=== PATIENT | male | born 1955 | race Caucasian/White ===

== ENCOUNTER 2020-01-19 09:43 | Outpatient (CLI) | payer MEDICARE, MEDICAID, SELFPAY ==
--- NOTE | 2020-01-19 09:49 | USCV_ITS ---
Chano Lao Age: 64 Gender: M : 1955 Exam Date: 01/19/2020 10:22 Ordering Phys: Sergio Piña MD ([email or web address]) Technologist: Marita Campbell [place] [facility] [place]: CAROTID STENOSIS Risk Factors: Previous Vascular Surgery: Right Brachial BP: / Left Brachial BP: / Right Left Velocity (cm/s) Spectral Plaque Velocity (cm/s) Spectral Plaque Syst/Diast Broadening Syst/Diast Broadening 97.00/ 36.40 Prox CCA 68.40 / 17.60 101.40/39.70 Mid CCA 70.60 / 28.70 77.20/ 28.70 Distal CCA 79.40 / 33.10 76.10/ 28.70 Prox ICA 79.40 / 25.35 63.90/ 29.80 Mid ICA 78.30 / 36.40 68.40/ 30.90 Distal ICA 75.00 / 29.80 79.40 ECA 118.00 0.75 ICA/CCA 1.28 Antegrade Vertebral Antegrade 47.40/ 17.60 cm/s 40.00/ cm/s FINDINGS Mild to moderate diffuse plaques in the common carotid arteries bilaterally. Mild to moderate heterogeneous plaques of the right bifurcation and ICA Moderate heterogeneous plaques at the bifurcation and proximal internal carotid artery on the left side Delayed peaking waveforms in the internal carotid arteries bilaterally Antegrade flow in the vertebral arteries bilaterally Normal Doppler flow velocity in the external carotid arteries bilaterally CONCLUSIONS 1. Moderate heterogeneous plaques at the bifurcation and proximal internal carotid artery on the left side with velocity elevation consistent with 16-49% stenosis. 2. Mild to moderate heterogeneous plaques at the right bifurcation and internal carotid artery 3. Mild to moderate diffuse plaques in the common carotid arteries bilaterally. 4. Abnormal Doppler waveforms in the carotid arteries bilaterally may suggest aortic valve/aortic arch disease. Consider CTA, if clinically indicated Dr Selina Espitia MD [facility] (Electronically Signed) Final Date: 19 January 2020 23:17 S
== END 2020-01-19 09:44 | disposition home or self-care (01) ==
LOC: RAD 09:46
PROVIDERS: PCP Family Medicine; Visit Provider Internal Medicine Cardiovascular Disease
DX: I65.23 Occlusion and stenosis of bilateral carotid arteries (principal)
CPT/HCPCS: 93880

== ENCOUNTER → 2021-11-12 11:21 | Outpatient (BNVA) | payer MEDICARE, MEDICAID, SELFPAY | PROVIDERS: PCP Family Medicine; Referring Provider Internal Medicine Critical Care Medicine; Visit Provider Surgery | DX: C34.90 Malignant neoplasm of unspecified part of unspecified bronchus or lung (principal) | CPT/HCPCS: 99212 ==

== ENCOUNTER 2021-11-18 05:51 | Day surgery (SDC) | payer MEDICARE, MEDICAID, SELFPAY ==
[2021-11-14 13:50] VITALS: BMI 24.5
[2021-11-18] VITALS (7 sets, daily range): BP systolic 105–130; BP diastolic 67–88; PULSE 72–83; RESP 16–20; TEMP 36.4–36.8; O2SAT 95–100
--- NOTE | 2021-11-18 | SCC_ITS ---
Procedure done: Mediport Placement 6.5 seconds of fluoroscopic guidance, for a cumulative dose of 0.67 mGy, was provided to Dr. Brandt by the radiology department. C-arm images of the chest were saved for the patient's permanent record. [facility]
--- NOTE | 2021-11-18 06:25 | XR_ITS ---
WS: [id number] PORTABLE CHEST HISTORY: Postop after mediport placement COMPARISON: Chest CT 10/24/2021 Interval insertion RIGHT subclavian Mediport with tip at the SVC/atrial junction. Chronic hyperinflation from emphysema. Patient has a large solid mass centered over the central RIGHT lung noted to be neoplasm on prior imaging studies. No pleural effusion or pneumothorax. Cardiac size: Normal. Mediastinum/Aorta: Mild atherosclerosis aorta. Atherosclerosis aorta and widening the mediastinum due to the known RIGHT lung and mediastinal neoplasm. Surgical clips lower RIGHT neck. Prior anterior cervical fusion hardware. XR/XR chest 1V portable [id number] IMPRESSION: 1. Satisfactory placement RIGHT subclavian Mediport. Tip terminates at the SVC atrial junction. 2. Large solid mass centered over the central LEFT thorax has been previously described on chest CT from 10/24/2021.
--- NOTE | 2021-11-18 06:25 | SC_ITS ---
WS: [id number] C-ARM RADIOGRAPHS CHEST; 3 IMAGES HISTORY: medi port insertion COMPARISON: None available. Intraoperative imaging during RIGHT subclavian Mediport placement. Tip terminates at the caval/atrial junction. SC/C-arm [place] CVA [address]120 IMPRESSION: Satisfactory placement RIGHT Mediport.
[2021-11-18] MEDS: sodium chloride 0.9% 1,000 ML 30 ML IV (06:31)
--- NOTE | 2021-11-18 07:30 | ANES.PREANE2 ---
Pre-Anesthetic Assessment Height/Weight: Height 1.7 m Weight 71.214 kg Temp Pulse Resp BP Pulse Ox 97.8 F 83 20 H 118/81 96 11/18/21 06:13 11/18/21 06:13 11/18/21 06:13 11/18/21 06:13 11/18/21 06:13 Preop Diagnosis: lung cancer Operation Date: 11/18/21 07:00 Proposed Procedures p Ebus(Not Applicable) - MD romel Lanier Portacath Placement 43692/C34.90(Not Applicable) - Luis Fernando Brandt DO Familial anesthetic complications: None Was Beta Taz taken within 24 hours: Yes Was Clonidine taken within 24 hours: N/A Last intake: Intake Last Liquid Date 11/17/21 Last Liquid Time 17:00 Last Solid Date 11/17/21 Last Solid Time 17:00 Social Tobacco and No alcohol Exam alert, oriented x 3 and regular rate & rhythm rhonchi Airway Submandibular: within normal limits Cervical ROM: within normal limits Mallampati: Class II Dentition: false Pulmonary Chronic Obstructive Pulmonary Disease lung CA CV/HEM Coronary Artery Disease (stent), Hypertension and Myocardial Infarction Metabolic Hyperlipidemia and Thyroid Disease Anesthetic Plan ASA status: 3 Anesthesia: General Medications/Allergies Home Medications Medication Instructions Recorded Confirmed Last Taken Type albuterol sulfate 90 mcg/actuation 2 puff INHALATION Q6H PRN 07/31/19 11/14/21 11/17/21 History aerosol inhaler (ProAir HFA) carvedilol 3.125 mg tablet 3.125 mg PO BID 07/31/19 11/18/21 11/18/21 History levothyroxine 125 mcg capsule 125 mcg PO QDAY 07/31/19 11/14/21 11/17/21 History pravastatin 40 mg tablet 40 mg PO QDAY 07/31/19 11/14/21 11/17/21 History budesonide-formoterol HFA 160 1 inh INHALATION BID 11/12/21 11/14/21 11/17/21 History mcg-4.5 mcg/actuation aerosol inhaler (Symbicort) guaifenesin 600 mg tablet, 600 mg PO BID 11/12/21 11/14/21 11/17/21 History extended release 12 hr (Mucinex) hydrocodone 10 mg-acetaminophen 1 tab PO Q6H PRN 11/12/21 11/14/21 11/17/21 History 325 mg tablet Allergies Allergy/AdvReac Type Severity Reaction Status Date / Time No Known Allergies Allergy Verified 11/12/21 11:31 Current Medications Generic Name Dose Route Start Last Admin Trade Name Apolinarq PRN Reason Stop Dose Admin Sodium Chloride 1,000 mls @ 30 mls/hr 11/18/21 06:00 11/18/21 06:31 Sodium Chloride 0.9% IV 11/19/21 05:59 30 mls/hr .Q24H MARIVEL Administration PFSH Anesthesia Medical History AAA (abdominal aortic aneurysm) Aortic stenosis ASHD (arteriosclerotic heart disease) Carotid stenosis, bilateral COPD (chronic obstructive pulmonary disease) CVA (cerebral vascular accident) DDD (degenerative disc disease) Hyperlipidemia Surgical History H/O neck surgery Previous back surgery S/P carotid endarterectomy Family History Family/Other CAD (coronary artery disease) Social History Smoking and tobacco status: current every day smoker cigarettes Packs smoked per day: 2 Years cigarettes smoked: 51 [ Other cigarette details: started at age 15] Data Anesthesia Cardiac Studies: No Data to Display
[2021-11-18] MEDS: heparin, porcine 1,000 unit/mL INJ 10 mL 10000 UNIT INJECTION (07:35)
--- NOTE | 2021-11-18 08:10 | PM.OP ---
Operative Report Date of procedure: November 18, 2021 Pre-op diagnosis: Preop Diagnosis lung cancer Post-op diagnosis: SAME Procedure done: Mediport Placement Specimens removed/disposition: none Surgeon: Luis Fernando Brandt D.O. Estimated blood loss: 2 Brief History: Patient with Left-sided lung mass. We discussed the risks and benefits, possible alternatives, and possible complications of the above procedure including bleeding, infection, scar, pain, risk of pneumothorax, need for chest tube, possible malfunction or malposition, or flipping of the Mediport, possible infection of the Mediport, bacteremia, possible need for Mediport removal or removal in the future upon completion of treatment. She expressed understanding to our discussion, signed informed consent which is documented on the chart, and wished to proceed to the OR today. Procedure: Mr. Lao was taken to the operating room and placed supine on the operating room table. All bony prominences were padded. She was given IV sedation and monitored throughout the case by the anesthesia personnel. SCDs were placed and turned on. The arms were tucked to the side. Patient received Ancef 2 g preoperatively IV. The bilateral chest wall and breasts were prepped and draped in usual sterile fashion using chlorhexidine base prep. Sterile drapes were applied. We did procedure pause prior to beginning. An 18 gauge needle was placed in the right subclavian vein. Dark, nonpulsatile blood was aspirated. A guidewire was placed through the needle centrally toward the atrial/vena caval junction. Fluoroscopy visualized good placement. The needle was removed and the guidewire was clipped to the drape with a hemostat. Further local anesthetic was infiltrated in the soft tissues of the right chest wall and a #15 blade was used to make a horizontal skin incision. A subcutaneous Mediport pocket was created using Bovie cautery, dissecting down through the skin and subcutaneous tissues. Meticulous hemostasis was achieved. The Mediport was sutured in position using 3-0 vicryl suture x2 stitches. A #15 blade was used to make a small skin feroz around the guidewire insertion area. The Mediport tubing was tunneled through the subcutaneous tissues up to the needle insertion location. A dilator with a peel-away sheath was placed over the guidewire and placed centrally. After measuring with fluoroscopy, the Mediport tubing was cut to length so that the tip would end at the atrial/vena caval junction. The inner cannula and the guidewire were removed, leaving the dilator sheath in place. The Mediport was flushed. The tip of the catheter was inserted through the peel-away sheath and the peel-away sheath removed in the standard fashion. The Mediport was accessed with a straight Greene needle and dark, nonpulsatile blood was aspirated and flushed using heparinized saline to hep-lock the Mediport. Final fluoroscopy visualization showed no kink in the catheter and the tip of the Mediport tubing near the right atrial/vena caval junction. Both skin incisions were thoroughly irrigated and suctioned dry. Meticulous hemostasis noted. The Mediport incision was closed using interrupted 3-0 Vicryl suture for the deep dermal layer and 4-0 Vicryl run to close the skin edge. The right subclavian insertion site incision was closed with a single subcuticular stitch. Skin glue was applied as a topical dressing. This was allowed to dry. Patient was awakened from anesthesia and transferred via her cart to the recovery room in stable condition. All needle, sponge, and instrument counts were correct per the operating personnel x2 counts.
--- NOTE | 2021-11-18 08:19 | P.HPUD_ITS ---
Surgery/Procedure H&P Update DATE OF PROCEDURE: November 18, 2021 DATE H&P PERFORMED: 11/12/21 PREOP DIAGNOSIS: lung cancer PRIMARY INDICATION FOR PROCEDURE: This is a 66-year-old gentleman with suspected lung cancer. The patient has left lower lobe lung mass with extensive metastatic hilar lymphadenopathy. The patient was supposed to undergo bronchoscopy and EBUS however due to technical difficulties the EBUS scope was nonfunctional. I had reviewed the patient's CT scan from [facility] and there appeared to be some narrowing in the left-sided airways at the junction of the left upper lobe and lower lobe bronchi. After discussion with the patient's son, I had decided to proceed with a bronchoscopy to look for endobronchial lesions which could provide us diagnosis. PLANNED PROCEDURE: Bronchoscopy inspection of the endobronchial biopsy, bronchoalveolar lavage and control of bleeding. Operation Date: 11/18/21 07:00 Proposed Procedures p Ebus(Not Applicable) - Tigre Ríos MD s Portacath Placement 95568/C34.90(Not Applicable) - Luis Fernando Brandt DO
--- NOTE | 2021-11-18 08:21 | PM.OP ---
Operative Report Date of procedure: November 18, 2021 Pre-op diagnosis: Preop Diagnosis lung cancer Preop Diagnosis lung cancer Brief History: This is a 66-year-old gentleman coming in for bronchoscopic evaluation for suspected lung cancer. The plan was for him to undergo bronchoscopy and EBUS for left hilar lung mass and mediastinal and hilar lymphadenopathy. However, due to technical reasons the EBUS scope was not functional. Had reviewed the patient's CT scan from [facility] and there appeared to be narrowing at the junction of the left upper lobe and lower lobe bronchi. After discussing with his son, I had decided to proceed with a bronchoscopy to see if there was any endobronchial lesion that could be biopsied. Procedure: Name of the procedure: Bronchoscopy with inspection of the airway, possible bronchoalveolar lavage, endobronchial biopsy and control of bleeding. Indication: Suspected lung cancer Anesthesia: General anesthesia. Local anesthesia: The vocal cords, trachea, yamil in the right and left mainstem bronchi were anesthetized with 1% lidocaine, 7 mL. Description of the procedure: The procedure was explained to the patient and the consent was obtained. The patient was brought to the OR. The patient underwent laryngeal mask airway placement for general anesthesia. Following induction of general anesthesia, the bronchoscope was advanced through the LMA. The vocal cords were normal. The vocal cords were anesthetized with 1% lidocaine. 3 mL lidocaine was used. The bronchoscope was then introduced through the vocal cords under direct visualization. Upper and lower trachea appeared to be mildly erythematous. Upper and lower trachea arrested with 1% lidocaine. The yamil and right and left mainstem bronchi were also incised with 1% lidocaine. In a systematic manner bilateral bronchial tree was then examined. The bronchoscope was advanced into the left mainstem bronchus. The left upper lobe, lingula and left lower lobe bronchi were examined up to the third subsegmental level and no abnormalities were identified. There is no endobronchial lesion. The bronchoscope was then introduced into the right mainstem bronchus. The right upper lobe, right middle lobe and right lower lobe bronchi were examined up to the third subsegmental level and no abnormalities were identified. There was mild airway erythema and mucus throughout the lung. The mucus was cleared out by suctioning. Samples: 1. No samples are obtained. Complications: There was no immediate complications.
--- NOTE | 2021-11-18 16:29 | ANE.PACU2 ---
Inpatient post-anesthesia follow up: Airway intact: Yes Vital signs: Temperature 97.8 F Pulse Rate 72 Respiratory Rate 18 Blood Pressure 105/75 Pulse Oximetry 97 Oxygen Delivery Me thod Room Air Oxygen Flow Rate 6 Fraction of Inspir ed Oxygen Hydration adequate: Yes Nausea and vomiting: No Pain level: 2 Mental status: Baseline
== END 2021-11-18 09:28 | disposition home or self-care (01) ==
PROVIDERS: Surgery; PCP Family Medicine; Visit Provider Internal Medicine Critical Care Medicine
PROC: BB4BZZZ Ultrasonography of Pleura (ICD-10-PCS; principal; 2021-11-18 07:00)
PROC: (CPT 36561; 2021-11-18 07:00)
DX: C34.90 Malignant neoplasm of unspecified part of unspecified bronchus or lung (principal); J44.9 Chronic obstructive pulmonary disease, unspecified; I25.10 Atherosclerotic heart disease of native coronary artery without angina pectoris; Z95.5 Presence of coronary angioplasty implant and graft; I10 Essential (primary) hypertension; I25.2 Old myocardial infarction; E78.5 Hyperlipidemia, unspecified; Z86.73 Personal history of transient ischemic attack (TIA), and cerebral infarction without residual deficits; F17.210 Nicotine dependence, cigarettes, uncomplicated
CPT/HCPCS: 36561; 71045; 76000; 77001; C1788; J0690; J1644; J2370; J2704; J3010; J7030

== ENCOUNTER 2021-11-25 05:40 | Day surgery (SDC) | payer MEDICARE, MEDICAID, SELFPAY ==
[2021-11-21 14:37] VITALS: BMI 24.4
[2021-11-25 06:12] VITALS: BP 131/85; PULSE 76; RESP 18; TEMP 36.7; O2SAT 96
[2021-11-25] MEDS: sodium chloride 0.9% 1,000 ML 30 ML IV (06:15)
--- NOTE | 2021-11-25 06:59 | P.ANESUD_ITS ---
Pre-Anesthetic Update Pre-Anesthetic Assessment: Date of Surgery/Procedure: 11/25/21 Preop Claudine gnosis: lung cancer Proposed Procedure: Operation Date: 11/18/21 12:00 Proposed Procedures p Portacath Placement 14600/C34.90(Not Applicable) - Luis Frenando Brandt DO Operation Date: 11/25/21 07:00 Proposed Procedures p Ebus(Not Applicable) - Tigre Ríos MD Changes from Pre-Anesthetic Assessment: No changes per patient. Patient received a GA 1 week prior with no issues. Last Intake: Intake Last Liquid Date 11/24/21 Last Liquid Time 21:00 Last Solid Date 11/24/21 Last Solid Time 17:00 Vitals: Temperature 98.1 F 11/25/21 06:12 Temperature Source Temporal Artery S can 11/25/21 06:12 Pulse Rate 76 11/25/21 06:12 Respiratory Rate 18 11/25/21 06:12 Blood Pressure 131/85 11/25/21 06:12 Blood Pressure Yvonne n 100 11/25/21 06:12 Pulse Oximetry 96 11/25/21 06:12 Oxygen Delivery Me thod 11/25/21 06:12 Cardiac Studies: No Data to Display
--- NOTE | 2021-11-25 07:03 | W.PM.OPSUD ---
Surgery/Procedure H&P Update DATE OF PROCEDURE: November 25, 2021 DATE H&P PERFORMED: 11/12/21 CHANGES TO PREVIOUS DOCUMENTATION: No changes PREOP DIAGNOSIS: lung cancer PRIMARY INDICATION FOR PROCEDURE: Suspected lung cancer PLANNED PROCEDURE: Bronchoscopy with inspection of the airway, endobronchial sound guided transbronchial needle aspiration of lymph nodes and control of bleeding. Operation Date: 11/18/21 12:00 Proposed Procedures p Portacath Placement 96731/C34.90(Not Applicable) - Luis Fernando Brandt DO Operation Date: 11/25/21 07:00 Proposed Procedures p Ebus(Not Applicable) - Tigre Ríos MD
[2021-11-25] MEDS: lidocaine 1% INJ 20 mL XX (07:23)
[2021-11-25 07:50] VITALS: BP 100/62; PULSE 74; RESP 14; TEMP 36.3; O2SAT 97
--- NOTE | 2021-11-25 07:51 | PM.OP ---
Operative Report Date of procedure: November 25, 2021 Pre-op diagnosis: Preop Diagnosis lung cancer Brief History: This is a 66-year-old gentleman coming in for left lower lobe lung mass with left hilar conglomerate mass for bronchoscopic evaluation. Last week, due to technical difficulties, the patient only underwent a bronchoscopic evaluation. Today the patient is here for endobronchial sunbathe transbronchial needle aspiration of lymph nodes. Procedure: Name of the procedure: Bronchoscopy with inspection of the airway, endobronchial ultrasound-guided transbronchial needle aspiration of lymph nodes and control of bleeding. Indication: Suspected lung cancer. Anesthesia: General anesthesia. Local anesthesia: The vocal cords, trachea, yamil in the right and left mainstem bronchi were anesthetized with 1% lidocaine, 7 mL. Description of the procedure: The procedure was explained to the patient and the consent was obtained. The patient was brought to the OR. The patient underwent laryngeal mask airway placement for general anesthesia. Following induction of general anesthesia, the bronchoscope was advanced through the LMA. The vocal cords were normal. The vocal cords are anesthetized with 1% lidocaine, 3 mL lidocaine was used. Under direct visualization the bronchoscope was then introduced through the vocal cords into the upper trachea. Upper and lower trachea appeared normal. The trachea was anesthetized with 1% lidocaine. The yamil was sharp. The yamil and right and left mainstem bronchi were anesthetized with 1% lidocaine. The lower trachea appeared to be erythematous, no endotracheal lesion was seen. The yamil was sharp. The yamil, the right and left mainstem bronchi are anesthetized with 1% lidocaine. The endobronchial ultrasound was then introduced. There was no paratracheal lymphadenopathy. The subcarinal lymph node was small. There is a large left-sided hilar mass identified. Fine-needle aspiration was performed from the left hilar lung mass. 6 samples were obtained. Samples: 1. The fine-needle aspiration was sent for pathology and cytopathology.
[2021-11-25 07:55] VITALS: BP 103/64; PULSE 75; RESP 15; O2SAT 96
[2021-11-25 08:00] VITALS: BP 107/67; PULSE 72; RESP 16; TEMP 36.6; O2SAT 91
[2021-11-25 08:08] VITALS: BP 106/66; PULSE 75; RESP 16; TEMP 36.6; O2SAT 92
[2021-11-25 08:14] VITALS: BP 104/66; PULSE 77; RESP 16; TEMP 36.5; O2SAT 94
--- NOTE | 2021-11-25 13:44 | ANE.PACU2 ---
Inpatient post-anesthesia follow up: Airway intact: Yes Vital signs: Temperature 97.7 F Pulse Rate 77 Respiratory Rate 16 Blood Pressure 104/66 Pulse Oximetry 94 Oxygen Delivery Me thod Room Air Oxygen Flow Rate Fraction of Inspir ed Oxygen Hydration adequate: Yes Nausea and vomiting: No Pain level: 2 Mental status: Baseline
[2021-11-28 14:32] LABS: Miscellaneous Test See Scanned Lab Rpt
== END 2021-11-25 08:34 | disposition home or self-care (01) ==
PROVIDERS: PCP Family Medicine; Visit Provider Internal Medicine Critical Care Medicine
PROC: BB4BZZZ Ultrasonography of Pleura (ICD-10-PCS; principal; 2021-11-25 07:00)
DX: C34.90 Malignant neoplasm of unspecified part of unspecified bronchus or lung (principal)
CPT/HCPCS: 31652; 80503; 88305; 88342; J1100; J2405; J2704; J3010; J7030

== ENCOUNTER 2021-12-02 09:00 | Oncology outpatient (recurring) (ONCR) | payer MEDICARE, MEDICAID, SELFPAY ==
[2021-11-27 16:25] LABS: Basophils # 0.1 10^3/uL (0.0-0.1); Basophils % 0.5 %; Eosinophils # 0.1 10^3/uL (0.0-0.8); Eosinophils % 0.8 %; Hematocrit 33.6 % (42.0-52.0); Lymphocytes # 2.3 10^3/uL (0.8-4.8); Lymphocytes % 15.8 %; Mean Corpuscular HGB Conc 32.7 g/dL (30.0-36.0); Mean Corpuscular Hemoglobin 32.8 pg (28.0-34.0); Mean Corpuscular Volume 100.3 fl (80-94); Monocytes # 1.1 10^3/uL (0.2-0.9); Monocytes % 7.4 %; Neutrophils # 10.83 10^3/uL (1.8-7.7); Neutrophils % 75.2 %; Nucleated Red Blood Cells % 0 %; Platelet Count 295 10^3/cmm (130-400); Red Blood Count 3.35 10^6/uL (4.1-5.3); Red Cell Distribution Width 13.1 % (12.1-15.1); White Blood Count 14.4 10^3/uL (4.0-10.0)
[2021-11-27 16:59] LABS: Alanine Aminotransferase 37 U/L (0-41); Albumin Level 3.7 g/dL (3.5-5.2); Alkaline Phosphatase 106 IU/L (40-130); Anion Gap 13.7 (5-19); Aspartate Amino Transferase 42 U/L (0-40); Blood Urea Nitrogen 15 mg/dL (8-23); Calcium 9.1 mg/dL (8.5-10.5); Carbon Dioxide 26 mmol/L (22-29); Chloride 102 mmol/L (98-107); Globulin 3.4 g/dL (1.3-4.6); Glomerular Filtration Rate 134.4 mL/min (90-130); Glucose 92 mg/dL (65-115); Osmolality Calculated 286 mOsm/kg (285-295); Potassium 3.7 mmol/L (3.5-5.1); Sodium 138 mmol/L (136-145); Total Bilirubin 0.2 mg/dL (0.15-1.2); Total Protein 7.1 g/dL (6.6-8.7)
[2021-12-02 09:32] LABS: Basophils # 0.1 10^3/uL (0.0-0.1); Basophils % 0.6 %; Eosinophils # 0.2 10^3/uL (0.0-0.8); Eosinophils % 1.5 %; Hemoglobin 11.1 g/dL (11.7-16.6); Lymphocytes # 1.5 10^3/uL (0.8-4.8); Lymphocytes % 12.9 %; Mean Corpuscular HGB Conc 33.6 g/dL (30.0-36.0); Mean Corpuscular Hemoglobin 33.4 pg (28.0-34.0); Mean Corpuscular Volume 99.4 fl (80-94); Mean Platelet Volume 8.9 fL (7.4-10.4); Monocytes % 8.2 %; Neutrophils # 8.87 10^3/uL (1.8-7.7); Neutrophils % 76.3 %; Nucleated Red Blood Cells % 0 %; Platelet Count 279 10^3/cmm (130-400); Red Blood Count 3.32 10^6/uL (4.1-5.3); Red Cell Distribution Width 13.1 % (12.1-15.1); White Blood Count 11.6 10^3/uL (4.0-10.0)
[2021-12-02 10:04] LABS: Alanine Aminotransferase 22 U/L (0-41); Albumin Level 3.6 g/dL (3.5-5.2); Alkaline Phosphatase 116 IU/L (40-130); Anion Gap 11.7 (5-19); Aspartate Amino Transferase 28 U/L (0-40); Blood Urea Nitrogen 13 mg/dL (8-23); Carbon Dioxide 27 mmol/L (22-29); Chloride 99 mmol/L (98-107); Globulin 3.4 g/dL (1.3-4.6); Glomerular Filtration Rate 134.4 mL/min (90-130); Glucose 130 mg/dL (65-115); Osmolality Calculated 280 mOsm/kg (285-295); Potassium 3.7 mmol/L (3.5-5.1); Prostate Specific Antigen 0.268 ng/mL (0-4); Sodium 134 mmol/L (136-145); Total Bilirubin 0.3 mg/dL (0.15-1.2)
[2021-12-02 10:30] VITALS: BMI 23.6
[2021-12-02] MEDS: sodium chloride 0.9% 250 ML 75 ML IV (12:45)
[2021-12-02] MEDS: diphenhydrAMINE 50 mg/mL SDV 1mL 25 MG IVP (12:45)
[2021-12-02] MEDS: famotidine 20 mg/2 mL INJ IVP (12:46)
[2021-12-02] MEDS: ondansetron 2 mg/ML SDV 2 mL 8 MG IVP (12:49)
[2021-12-02] MEDS: OLANZapine 5 mg TABLET PO (12:50)
[2021-12-02] MEDS: atezolizumab 1,200 MG in sodium chloride 0.9% 250 ML 270 MG IV (13:14)
[2021-12-02] MEDS: fosaprepitant 150 MG in sodium chloride 0.9% 150 ML 300 MG IV (14:19)
[2021-12-02 17:24] VITALS: BP 125/76; PULSE 86; TEMP 36.3; O2SAT 94
== END 2021-12-02 23:59 | disposition home or self-care (01) ==
PROVIDERS: PCP Family Medicine; Visit Provider Internal Medicine Hematology & Oncology
DX: Z51.12 Encounter for antineoplastic immunotherapy (principal); Z51.11 Encounter for antineoplastic chemotherapy; C34.32 Malignant neoplasm of lower lobe, left bronchus or lung; C78.01 Secondary malignant neoplasm of right lung; C77.8 Secondary and unspecified malignant neoplasm of lymph nodes of multiple regions; J44.9 Chronic obstructive pulmonary disease, unspecified; F17.210 Nicotine dependence, cigarettes, uncomplicated; Z79.899 Other long term (current) drug therapy; Z79.891 Long term (current) use of opiate analgesic
CPT/HCPCS: 36591; 80053; 84153; 85025; 96367; 96375; 96413; 96417; 99205; 99215; 99999; J1100; J1200; J1453; J2405; J3490; J7040; J7050; J9022; J9045; J9181

== ENCOUNTER 2021-12-25 08:00 | Oncology outpatient (recurring) (ONCR) | payer MEDICARE, MEDICAID, SELFPAY ==
[2021-12-03] MEDS: sodium chloride 0.9% 250 ML 75 ML IV (09:23)
[2021-12-03] MEDS: ondansetron 2 mg/ML SDV 2 mL 8 MG IVP (09:24)
[2021-12-03 13:00] VITALS: BP 99/64; PULSE 98; RESP 20; TEMP 36.9; O2SAT 95
[2021-12-04] MEDS: sodium chloride 0.9% 250 ML 75 ML IV (08:59)
[2021-12-04] MEDS: palonosetron 0.25 mg/5 mL SDV IVP (09:00)
[2021-12-04 10:39] VITALS: BP 105/75; PULSE 88; RESP 20; TEMP 36.4; O2SAT 98
[2021-12-09 08:42] LABS: Hematocrit 32.5 % (42.0-52.0); Hemoglobin 10.9 g/dL (11.7-16.6); Mean Corpuscular HGB Conc 33.5 g/dL (30.0-36.0); Mean Corpuscular Hemoglobin 32.3 pg (28.0-34.0); Mean Corpuscular Volume 96.4 fl (80-94); Mean Platelet Volume 9.5 fL (7.4-10.4); Platelet Count 139 10^3/cmm (130-400); Red Blood Count 3.37 10^6/uL (4.1-5.3); Red Cell Distribution Width 12.2 % (12.1-15.1); White Blood Count 6.8 10^3/uL (4.0-10.0)
[2021-12-09 08:47] LABS: Alanine Aminotransferase 31 U/L (0-41); Albumin Level 3.6 g/dL (3.5-5.2); Alkaline Phosphatase 116 IU/L (40-130); Anion Gap 14.1 (5-19); Aspartate Amino Transferase 26 U/L (0-40); Blood Urea Nitrogen 24 mg/dL (8-23); Calcium 9.1 mg/dL (8.5-10.5); Carbon Dioxide 27 mmol/L (22-29); Chloride 98 mmol/L (98-107); Globulin 3.7 g/dL (1.3-4.6); Glomerular Filtration Rate 134.4 mL/min (90-130); Glucose 116 mg/dL (65-115); Osmolality Calculated 285 mOsm/kg (285-295); Potassium 4.1 mmol/L (3.5-5.1); Sodium 135 mmol/L (136-145); Total Bilirubin 0.5 mg/dL (0.15-1.2); Total Protein 7.3 g/dL (6.6-8.7)
[2021-12-09 09:30] LABS: Absolute Segmented Neutrophil 2.3 10/cmm (1.6-7.1); Band Neutrophils Absolute 0.7 10^3/cmm (0.0-1.2); Eosinophils 1 %; Lymphocytes 36 %; Lymphocytes Absolute 2.8 10^3/cmm (1.2-3.4); Monocytes Absolute 0.9 10^3/cmm (0.1-0.6); Segmented Neutrophils 34 %; Total Cells Counted 100 (0-100)
[2021-12-09 09:32] LABS: Absolute Neutrophil 3.1 10^3/cmm (1.4-6.5); Macrocytosis Trace; Microcytosis Trace; Platelet Estimate Decreased (Normal); Polychromasia Trace; Stomatocytes Trace
[2021-12-09 09:33] LABS: Dohle Bodies Trace
[2021-12-23 07:32] LABS: Basophils # 0.1 10^3/uL (0.0-0.1); Basophils % 0.9 %; Eosinophils % 0.4 %; Hematocrit 30.1 % (42.0-52.0); Hemoglobin 10.6 g/dL (11.7-16.6); Lymphocytes # 1.4 10^3/uL (0.8-4.8); Lymphocytes % 13.5 %; Mean Corpuscular HGB Conc 35.2 g/dL (30.0-36.0); Mean Corpuscular Hemoglobin 33.1 pg (28.0-34.0); Mean Corpuscular Volume 94.1 fl (80-94); Mean Platelet Volume 9.9 fL (7.4-10.4); Monocytes # 1.1 10^3/uL (0.2-0.9); Monocytes % 10.7 %; Neutrophils # 7.02 10^3/uL (1.8-7.7); Neutrophils % 68.3 %; Nucleated Red Blood Cells % 0 %; Platelet Count 279 10^3/cmm (130-400); Red Cell Distribution Width 11.9 % (12.1-15.1); White Blood Count 10.3 10^3/uL (4.0-10.0)
[2021-12-23 07:58] LABS: Alanine Aminotransferase 44 U/L (0-41); Albumin Level 3.4 g/dL (3.5-5.2); Alkaline Phosphatase 143 IU/L (40-130); Anion Gap 13.6 (5-19); Aspartate Amino Transferase 22 U/L (0-40); Blood Urea Nitrogen 24 mg/dL (8-23); Calcium 9.1 mg/dL (8.5-10.5); Carbon Dioxide 26 mmol/L (22-29); Chloride 99 mmol/L (98-107); Globulin 4.3 g/dL (1.3-4.6); Glomerular Filtration Rate 96.4 mL/min (90-130); Glucose 102 mg/dL (65-115); Magnesium 1.9 mg/dL (1.7-2.3); Osmolality Calculated 284 mOsm/kg (285-295); Potassium 3.6 mmol/L (3.5-5.1); Prostate Specific Antigen 0.275 ng/mL (0-4); Sodium 135 mmol/L (136-145); Thyroid Stimulating Hormone 1.02 uIU/mL (0.27-4.20); Total Bilirubin 0.2 mg/dL (0.15-1.2); Total Protein 7.7 g/dL (6.6-8.7)
[2021-12-23 08:15] LABS: Slide Review Slide Review Perform
[2021-12-23] MEDS: sodium chloride 0.9% 250 ML 75 ML IV (10:06)
[2021-12-23] MEDS: famotidine 20 mg/2 mL INJ IVP (10:07)
[2021-12-23] MEDS: ondansetron 2 mg/ML SDV 2 mL 8 MG IVP (10:09)
[2021-12-23] MEDS: diphenhydrAMINE 50 mg/mL SDV 1mL 25 MG IVP (10:10)
[2021-12-23] MEDS: OLANZapine 5 mg TABLET PO (10:11)
[2021-12-23] MEDS: fosaprepitant 150 MG in sodium chloride 0.9% 150 ML 300 MG IV (10:12)
[2021-12-23] MEDS: atezolizumab 1,200 MG in sodium chloride 0.9% 250 ML 600 MG IV (11:10)
[2021-12-23] MEDS: CARBOplatin 530 MG in sodium chloride 0.9% 500 ML 553 MG IV (12:12)
[2021-12-23 14:16] VITALS: BP 105/69; PULSE 74; TEMP 36.1; O2SAT 92
[2021-12-24] MEDS: sodium chloride 0.9% 250 ML 100 ML IV (08:28)
[2021-12-24] MEDS: ondansetron 2 mg/ML SDV 2 mL 8 MG IVP (08:29)
[2021-12-24 09:59] VITALS: BP 105/62; PULSE 75; RESP 16; TEMP 36.7; O2SAT 93
[2021-12-25] MEDS: sodium chloride 0.9% 250 ML 100 ML IV (09:07)
[2021-12-25] MEDS: palonosetron 0.25 mg/5 mL SDV IVP (09:08)
[2021-12-25 09:09] VITALS: BP 104/66; PULSE 85; RESP 18; TEMP 36.4; O2SAT 95
[2021-12-25 10:21] VITALS: BP 107/61; PULSE 73; RESP 16; TEMP 36.7; O2SAT 90
== END 2022-01-01 23:59 | disposition home or self-care (01) ==
PROVIDERS: Nurse Practitioner Family; PCP Family Medicine; Visit Provider Internal Medicine Hematology & Oncology
DX: Z51.11 Encounter for antineoplastic chemotherapy (principal); C34.32 Malignant neoplasm of lower lobe, left bronchus or lung; Z53.9 Procedure and treatment not carried out, unspecified reason
CPT/HCPCS: 36415; 36591; 80053; 83735; 84153; 84443; 85007; 85025; 96367; 96375; 96413; 96417; 99214; 99215; J1100; J1200; J1453; J2405; J2469; J3490; J7040; J7050; J9022; J9045; J9181

== ENCOUNTER 2022-01-13 07:51 | Oncology outpatient (recurring) (ONCR) | payer MEDICARE, MEDICAID, SELFPAY ==
[2022-01-13] VITALS (9 sets, daily range): BP systolic 102–141; BP diastolic 57–79; PULSE 76–85; RESP 16–20; TEMP 36.6–37.4; O2SAT 92–96
[2022-01-13 09:30] LABS: Basophils % 0.3 %; Eosinophils # 0.2 10^3/uL (0.0-0.8); Hematocrit 21.3 % (42.0-52.0); Hemoglobin 7.3 g/dL (11.7-16.6); Lymphocytes # 1.4 10^3/uL (0.8-4.8); Lymphocytes % 14.6 %; Mean Corpuscular HGB Conc 34.3 g/dL (30.0-36.0); Mean Corpuscular Volume 96.4 fl (80-94); Mean Platelet Volume 10.1 fL (7.4-10.4); Monocytes # 1.5 10^3/uL (0.2-0.9); Monocytes % 15.4 %; Neutrophils # 6.08 10^3/uL (1.8-7.7); Neutrophils % 64.6 %; Nucleated Red Blood Cells % 0 %; Platelet Count 166 10^3/cmm (130-400); Red Blood Count 2.21 10^6/uL (4.1-5.3); Red Cell Distribution Width 13.3 % (12.1-15.1); White Blood Count 9.4 10^3/uL (4.0-10.0)
[2022-01-13 09:58] LABS: Alanine Aminotransferase 19 U/L (0-41); Albumin Level 3.4 g/dL (3.5-5.2); Alkaline Phosphatase 105 IU/L (40-130); Anion Gap 12.4 (5-19); Aspartate Amino Transferase 17 U/L (0-40); Blood Urea Nitrogen 17 mg/dL (8-23); Calcium 8.5 mg/dL (8.5-10.5); Carbon Dioxide 28 mmol/L (22-29); Chloride 102 mmol/L (98-107); Globulin 3.3 g/dL (1.3-4.6); Glomerular Filtration Rate 134.4 mL/min (90-130); Glucose 123 mg/dL (65-115); Magnesium 1.7 mg/dL (1.7-2.3); Osmolality Calculated 291 mOsm/kg (285-295); Potassium 3.4 mmol/L (3.5-5.1); Prostate Specific Antigen 0.337 ng/mL (0-4); Sodium 139 mmol/L (136-145); Thyroid Stimulating Hormone 0.83 uIU/mL (0.27-4.20); Total Bilirubin 0.2 mg/dL (0.15-1.2); Total Protein 6.7 g/dL (6.6-8.7)
[2022-01-13] MEDS: acetaminophen 325 mg Tablet 650 MG PO (10:59)
[2022-01-13] MEDS: diphenhydrAMINE 25 mg Capsule PO (11:00)
[2022-01-13] MEDS: sodium chloride 0.9% 250 ML 75 ML IV (11:12)
[2022-01-13] MEDS: FUROsemide 10 mg/mL SDV 2mL 20 MG IVP (13:10)
== END 2022-01-13 23:59 | disposition home or self-care (01) ==
PROVIDERS: PCP Family Medicine; Visit Provider Internal Medicine Hematology & Oncology
DX: C34.32 Malignant neoplasm of lower lobe, left bronchus or lung (principal); C77.8 Secondary and unspecified malignant neoplasm of lymph nodes of multiple regions; R53.83 Other fatigue; F17.210 Nicotine dependence, cigarettes, uncomplicated; Z79.891 Long term (current) use of opiate analgesic; Z79.899 Other long term (current) drug therapy
CPT/HCPCS: 36430; 80053; 83735; 84153; 84443; 85025; 86850; 86900; 86920; 96375; 99214; 99215; J1940; J7050; P9016; P9040

== ENCOUNTER 2022-01-21 08:00 | Oncology outpatient (recurring) (ONCR) | payer MEDICARE, MEDICAID, SELFPAY ==
[2022-01-14] MEDS: sodium chloride 0.9% 250 ML 100 ML IV (09:15)
[2022-01-14] MEDS: ondansetron 2 mg/ML SDV 2 mL 8 MG IVP (09:17)
[2022-01-14] MEDS: famotidine 20 mg/2 mL INJ IVP (09:17)
[2022-01-14] MEDS: OLANZapine 5 mg TABLET PO (09:17)
[2022-01-14] MEDS: diphenhydrAMINE 50 mg/mL SDV 1mL 25 MG IVP (09:18)
[2022-01-14] MEDS: fosaprepitant 150 MG in sodium chloride 0.9% 150 ML 300 MG IV (09:26)
[2022-01-14] MEDS: atezolizumab 1,200 MG in sodium chloride 0.9% 250 ML 600 MG IV (10:26)
[2022-01-14 14:02] VITALS: BP 121/68; PULSE 78; TEMP 37.3; O2SAT 92
[2022-01-15] MEDS: ondansetron 2 mg/ML SDV 2 mL 8 MG IVP (08:45)
[2022-01-15] MEDS: sodium chloride 0.9% 250 ML 100 ML IV (08:45)
[2022-01-16] MEDS: palonosetron 0.25 mg/5 mL SDV IVP (08:36)
[2022-01-16] MEDS: sodium chloride 0.9% 250 ML 100 ML IV (08:36)
[2022-01-16 10:10] VITALS: BP 99/63; PULSE 71; TEMP 37.1; O2SAT 92
[2022-01-21 08:22] LABS: Basophils # 0.1 10^3/uL (0.0-0.1); Basophils % 1.1 %; Eosinophils % 0.2 %; Hematocrit 30.3 % (42.0-52.0); Hemoglobin 9.9 g/dL (11.7-16.6); Lymphocytes # 0.4 10^3/uL (0.8-4.8); Lymphocytes % 7.9 %; Mean Corpuscular HGB Conc 32.7 g/dL (30.0-36.0); Mean Corpuscular Hemoglobin 31.3 pg (28.0-34.0); Mean Corpuscular Volume 95.9 fl (80-94); Mean Platelet Volume 9.5 fL (7.4-10.4); Monocytes # 0.2 10^3/uL (0.2-0.9); Monocytes % 2.8 %; Neutrophils # 4.68 10^3/uL (1.8-7.7); Neutrophils % 86.3 %; Nucleated Red Blood Cells % 0 %; Platelet Count 164 10^3/cmm (130-400); Red Blood Count 3.16 10^6/uL (4.1-5.3); Red Cell Distribution Width 14.4 % (12.1-15.1); White Blood Count 5.4 10^3/uL (4.0-10.0)
[2022-01-21 09:09] LABS: Alanine Aminotransferase 27 U/L (0-41); Albumin Level 3.9 g/dL (3.5-5.2); Alkaline Phosphatase 105 IU/L (40-130); Anion Gap 13.9 (5-19); Aspartate Amino Transferase 23 U/L (0-40); Blood Urea Nitrogen 33 mg/dL (8-23); Calcium 9.3 mg/dL (8.5-10.5); Carbon Dioxide 28 mmol/L (22-29); Chloride 96 mmol/L (98-107); Globulin 3.4 g/dL (1.3-4.6); Glomerular Filtration Rate 112.5 mL/min (90-130); Glucose 116 mg/dL (65-115); Osmolality Calculated 286 mOsm/kg (285-295); Potassium 3.9 mmol/L (3.5-5.1); Sodium 134 mmol/L (136-145); Total Bilirubin 0.4 mg/dL (0.15-1.2); Total Protein 7.3 g/dL (6.6-8.7)
== END 2022-02-01 23:59 | disposition home or self-care (01) ==
PROVIDERS: Nurse Practitioner Family; PCP Family Medicine; Visit Provider Internal Medicine Hematology & Oncology
DX: C34.32 Malignant neoplasm of lower lobe, left bronchus or lung; C77.8 Secondary and unspecified malignant neoplasm of lymph nodes of multiple regions; F17.210 Nicotine dependence, cigarettes, uncomplicated; Z79.899 Other long term (current) drug therapy; Z92.21 Personal history of antineoplastic chemotherapy; Z92.25 Personal history of immunosuppression therapy
CPT/HCPCS: 36591; 80053; 85025; 96367; 96375; 96413; 96417; 99214; J1100; J1200; J1453; J2405; J2469; J3490; J7040; J7050; J9022; J9045; J9181

== ENCOUNTER 2022-02-18 08:00 | Oncology outpatient (recurring) (ONCR) | payer MEDICARE, MEDICAID, SELFPAY ==
--- NOTE | 2022-02-03 11:00 | CT_ITS ---
WS: [id number] CT CHEST TECHNIQUE: Contrast enhanced CT of the chest with coronal and sagittal reformatted images. CLINICAL INFORMATION: restaging COMPARISON: PET/CT November 22, 2021, chest CT October 24, 2021 DLP: 654.[address] scans at [facility] use at least one of these dose optimization techniques: automated e xposure control; mA and/or kV adjustment per patient size (includes targeted exams where dose is matc hed to clinical indication); or iterative reconstruction. FINDINGS: Previously described superior segment LEFT lower lobe pulmonary mass with adjacent posterior mediasti nal and chest wall invasion has decreased in size compared to the prior examinations consistent with interval response to therapy. Residual soft tissue measures 3.7 x 2.5 CM. This can be further evaluat ed PET/CT to evaluate for activity. Markedly improved LEFT hilar lymphadenopathy. Improved bronchovas cular thickening along the LEFT hilum. No evidence of progressive mediastinal or hilar lymphadenopath y. Advanced chronic emphysematous changes. Interstitial thickening in the LEFT lower lobe some of which may be due to radiation therapy. Slight LEFT pleural thickening. Normal caliber thoracic aorta. Moderate aortic calcification. Coronary calcification. Proximal main p ulmonary arteries are normal. Adrenal glands are normal. Aortic endograft in the upper abdomen simila r to previous. No axillary lymphadenopathy. Moderate spondylitic changes thoracic spine with mild tho racic curve and kyphosis. CT/CT chest w con* [id number] IMPRESSION: 1. Significant interval improvement in the super segment LEFT lower lobe mass with residual soft tissue measuring 2.7 x 2.5 cm compatible with interval respo nse to therapy. PET CT could be obtained to evaluate for active disease. 2. Markedly improved LEFT mediastinal and hilar lymphadenopathy and bronchovas cular thickening. No progressed lymphadenopathy. 3. Interstitial thickening in the LEFT lower lobe with pleural thickening some of which is likely due to therapy-related changes. 4. Advanced chronic emphysematous changes. 5. Partially visualized abdominal aortic endograft.
[2022-02-03] MEDS: iohexol 350 mg/mL 100 mL Btl IV (11:48)
[2022-02-16 07:54] LABS: Basophils # 0.1 10^3/uL (0.0-0.1); Basophils % 1.1 %; Eosinophils # 0.2 10^3/uL (0.0-0.8); Eosinophils % 1.9 %; Hematocrit 27.6 % (42.0-52.0); Hemoglobin 8.8 g/dL (11.7-16.6); Lymphocytes # 1.6 10^3/uL (0.8-4.8); Lymphocytes % 19.7 %; Mean Corpuscular HGB Conc 31.9 g/dL (30.0-36.0); Mean Corpuscular Hemoglobin 32.6 pg (28.0-34.0); Mean Corpuscular Volume 102.2 fl (80-94); Mean Platelet Volume 10.1 fL (7.4-10.4); Monocytes # 1.2 10^3/uL (0.2-0.9); Monocytes % 14.5 %; Neutrophils # 5.02 10^3/uL (1.8-7.7); Neutrophils % 62.3 %; Nucleated Red Blood Cells % 0 %; Platelet Count 213 10^3/cmm (130-400); Red Cell Distribution Width 19.1 % (12.1-15.1); White Blood Count 8.1 10^3/uL (4.0-10.0)
[2022-02-16 08:25] LABS: Alanine Aminotransferase 11 U/L (0-41); Albumin Level 3.4 g/dL (3.5-5.2); Alkaline Phosphatase 91 IU/L (40-130); Aspartate Amino Transferase 17 U/L (0-40); Blood Urea Nitrogen 15 mg/dL (8-23); Calcium 9.2 mg/dL (8.5-10.5); Carbon Dioxide 26 mmol/L (22-29); Chloride 101 mmol/L (98-107); Globulin 3.9 g/dL (1.3-4.6); Glomerular Filtration Rate 134.4 mL/min (90-130); Glucose 111 mg/dL (65-115); Magnesium 1.7 mg/dL (1.7-2.3); Osmolality Calculated 286 mOsm/kg (285-295); Sodium 137 mmol/L (136-145); Total Bilirubin 0.3 mg/dL (0.15-1.2); Total Protein 7.3 g/dL (6.6-8.7)
[2022-02-16 08:27] LABS: Anion Gap 14.1 (5-19); Potassium 4.1 mmol/L (3.5-5.1)
[2022-02-16] MEDS: sodium chloride 0.9% 250 ML 75 ML IV (10:03)
[2022-02-16 10:32] LABS: Ferritin 729 ng/mL (30-400); Iron 66 ug/dL (59-158); Percent Saturation 26.7 % (20-50); Total Iron Binding Capacity 247 mcg/dl; Unsaturated Iron Binding 181 ug/dL (112-347)
[2022-02-16] MEDS: fosaprepitant 150 MG in sodium chloride 0.9% 150 ML 300 MG IV (10:36)
[2022-02-16 10:41] LABS: Vitamin B12 330 pg/mL (232-1245)
[2022-02-16] MEDS: famotidine 20 mg/2 mL INJ IVP (11:27)
[2022-02-16] MEDS: diphenhydrAMINE 50 mg/mL SDV 1mL 25 MG IVP (11:29)
[2022-02-16] MEDS: ondansetron 2 mg/ML SDV 2 mL 8 MG IVP (11:32)
[2022-02-16] MEDS: [UNRECOGNIZED DRUG - REMARK] 508.75 MG IV (11:41)
[2022-02-16] MEDS: atezolizumab 1,200 MG in sodium chloride 0.9% 250 ML 300 MG IV (14:03)
[2022-02-16 14:50] VITALS: BP 97/59; PULSE 74; RESP 18; TEMP 36.6; O2SAT 94
[2022-02-17] MEDS: sodium chloride 0.9% 250 ML 75 ML IV (08:56)
[2022-02-17] MEDS: ondansetron 2 mg/ML SDV 2 mL 8 MG IVP (08:56)
[2022-02-17] MEDS: [UNRECOGNIZED DRUG - REMARK] 508.75 MG IV (09:04)
[2022-02-18] MEDS: sodium chloride 0.9% 250 ML 75 ML IV (08:18)
[2022-02-18] MEDS: palonosetron 0.25 mg/5 mL SDV IVP (08:20)
[2022-02-18 08:25] VITALS: BP 123/71; PULSE 77; RESP 18; TEMP 36.6; O2SAT 95
[2022-02-18] MEDS: [UNRECOGNIZED DRUG - REMARK] 508.75 MG IV (08:55)
== END 2022-03-04 23:59 | disposition home or self-care (01) ==
PROVIDERS: Nurse Practitioner Family; PCP Family Medicine; Visit Provider Internal Medicine Hematology & Oncology
DX: Z51.11 Encounter for antineoplastic chemotherapy (principal); C34.32 Malignant neoplasm of lower lobe, left bronchus or lung; C77.8 Secondary and unspecified malignant neoplasm of lymph nodes of multiple regions; F17.210 Nicotine dependence, cigarettes, uncomplicated
CPT/HCPCS: 36415; 71260; 80053; 82607; 82728; 83540; 83550; 83735; 84443; 85025; 96366; 96367; 96375; 96413; 96417; 99214; 99215; J1100; J1200; J1453; J2405; J2469; J3490; J7030; J7040; J7050; J9022; J9045; J9181; Q9967

== ENCOUNTER 2022-04-03 07:46 | Oncology outpatient (recurring) (ONCR) | payer MEDICARE, MEDICAID, SELFPAY ==
[2022-03-10 14:09] LABS: Mean Corpuscular HGB Conc 33.2 g/dL (30.0-36.0); Mean Corpuscular Hemoglobin 34.3 pg (28.0-34.0); Mean Corpuscular Volume 103.4 fl (80-94); Mean Platelet Volume 11.5 fL (7.4-10.4); Platelet Count 59 10^3/cmm (130-400); Red Blood Count 1.78 10^6/uL (4.1-5.3); Red Cell Distribution Width 20.5 % (12.1-15.1); White Blood Count 5.7 10^3/uL (4.0-10.0)
[2022-03-10 14:27] LABS: Slide Review Slide Review Perform
[2022-03-10 14:28] LABS: Hematocrit 18.4 % (42.0-52.0); Hemoglobin 6.1 g/dL (11.7-16.6)
[2022-03-10 14:37] LABS: Band Neutrophils Absolute 0.1 10^3/cmm (0.0-1.2); Eosinophils 0 %; Lymphocytes 19 %; Lymphocytes Absolute 1.3 10^3/cmm (1.2-3.4); Monocytes Absolute 0.3 10^3/cmm (0.1-0.6); Segmented Neutrophils 71 %; Total Cells Counted 100 (0-100)
[2022-03-10 14:38] LABS: Absolute Neutrophil 4.2 10^3/cmm (1.4-6.5); Platelet Estimate Decreased (Normal)
[2022-03-10 14:42] LABS: Alanine Aminotransferase 14 U/L (0-41); Alkaline Phosphatase 115 U/L (40-130); Anion Gap 13.3 (5-19); Aspartate Amino Transferase 15 U/L (0-40); Blood Urea Nitrogen 12 mg/dL (8-23); Carbon Dioxide 27 mmol/L (22-29); Chloride 99 mmol/L (98-107); Globulin 3.3 g/dL (1.3-4.6); Glomerular Filtration Rate 134.4 mL/min (90-130); Glucose 108 mg/dL (65-115); Magnesium 1.4 mg/dL (1.7-2.3); Osmolality Calculated 282 mOsm/kg (285-295); Potassium 3.3 mmol/L (3.5-5.1); Sodium 136 mmol/L (136-145); Thyroid Stimulating Hormone 0.32 uIU/mL (0.27-4.20); Total Bilirubin 0.3 mg/dL (0.15-1.2); Total Protein 7.3 g/dL (6.6-8.7)
[2022-03-10 16:26] VITALS: BP 95/61; PULSE 88; RESP 16; TEMP 36.2; O2SAT 95
[2022-03-11] MEDS: acetaminophen 325 mg Tablet 650 MG PO (08:40)
[2022-03-11] MEDS: sodium chloride 0.9% 100 mL Bag 250 ML IV (08:42)
[2022-03-11] MEDS: diphenhydrAMINE 25 mg Capsule PO (09:00)
[2022-03-11 09:20] VITALS: BP 74/43; PULSE 84; RESP 18; TEMP 36.8; O2SAT 94
[2022-03-11 09:35] VITALS: BP 77/43; PULSE 82; RESP 18; TEMP 36.8; O2SAT 91
[2022-03-11 09:50] VITALS: BP 96/46; PULSE 81; RESP 18; TEMP 36.8; O2SAT 91
[2022-03-11 10:20] VITALS: BP 78/54; PULSE 81; RESP 18; TEMP 36.8; O2SAT 95
[2022-03-11 10:50] VITALS: BP 89/54; PULSE 85; RESP 18; TEMP 36.6; O2SAT 99
[2022-03-11] MEDS: FUROsemide 10 mg/mL SDV 2mL 20 MG IVP (11:10)
[2022-03-11 12:50] VITALS: BP 103/68; PULSE 84; RESP 18; TEMP 36.6; O2SAT 92
[2022-03-11 13:41] LABS: Magnesium 1.5 mg/dL (1.7-2.3); Potassium 3.2 mmol/L (3.5-5.1)
[2022-03-16 10:33] LABS: Basophils # 0.1 10^3/uL (0.0-0.1); Eosinophils % 0.5 %; Hematocrit 27.8 % (42.0-52.0); Hemoglobin 9.1 g/dL (11.7-16.6); Lymphocytes # 1.2 10^3/uL (0.8-4.8); Lymphocytes % 19.9 %; Mean Corpuscular HGB Conc 32.7 g/dL (30.0-36.0); Mean Corpuscular Hemoglobin 33.3 pg (28.0-34.0); Mean Corpuscular Volume 101.8 fl (80-94); Mean Platelet Volume 10.7 fL (7.4-10.4); Monocytes # 0.9 10^3/uL (0.2-0.9); Monocytes % 14.1 %; Neutrophils # 3.95 10^3/uL (1.8-7.7); Neutrophils % 63.9 %; Nucleated Red Blood Cells % 0 %; Platelet Count 150 10^3/cmm (130-400); Red Blood Count 2.73 10^6/uL (4.1-5.3); Red Cell Distribution Width 19.2 % (12.1-15.1); White Blood Count 6.2 10^3/uL (4.0-10.0)
[2022-03-16 11:08] LABS: Alanine Aminotransferase 16 U/L (0-41); Albumin Level 3.8 g/dL (3.5-5.2); Alkaline Phosphatase 111 U/L (40-130); Anion Gap 13.1 (5-19); Aspartate Amino Transferase 18 U/L (0-40); Blood Urea Nitrogen 11 mg/dL (8-23); Calcium 9.5 mg/dL (8.5-10.5); Carbon Dioxide 28 mmol/L (22-29); Chloride 102 mmol/L (98-107); Globulin 3.7 g/dL (1.3-4.6); Glomerular Filtration Rate 134.4 mL/min (90-130); Glucose 134 mg/dL (65-115); Magnesium 1.5 mg/dL (1.7-2.3); Osmolality Calculated 289 mOsm/kg (285-295); Potassium 4.1 mmol/L (3.5-5.1); Sodium 139 mmol/L (136-145); Total Bilirubin 0.4 mg/dL (0.15-1.2); Total Protein 7.5 g/dL (6.6-8.7)
[2022-03-16 14:30] VITALS: BP 132/78; PULSE 77; RESP 16; TEMP 36.5; O2SAT 98
--- NOTE | 2022-03-18 10:48 | N.ONRAD NP_ITS ---
Radiation Oncology Consultation Patient Name: Chano Lao Date of : 1955 Date of Service: 03/18/2022 Attending Physician: Nghia Gonzalez M.D. Chano Lao was seen in consultation this morning at the request of Citlaly Seth M.D. for consideration of consolidative thoracic radiotherapy in the management of small-cell lung cancer. The patient was evaluated for a suspected pneumonia in October. A thoracic CT scan demonstrated a 7.3 cm mass in the left lower lobe of the lung and extensive mediastinal adenopathy. A bronchoscopy with endobronchial ultrasound-guided biopsy was performed by Marian Ríos M.D. November 18, 2021. A biopsy obtained from the left hilar mass diagnosed small cell carcinoma (PD-L1 TPS < 1%). A PET scan ordered on November 22, 2021 described a 9 cm x 6 cm left lower lobe mass (SUV 20.5) invading the chest wall, 7.1 cm x 6.6 cm left hilar mass (SUV 19.4), a 1 cm right lower lobe nodule (SUV 4), hypermetabolic lymphadenopathy within the prevascular, subaortic, subcarinal, left cervical (level IV), portal, and right periaortic regions. He was prescribed carboplatin, etoposide, and Tecentriq under the supervision of Citlaly Seth M.D. (December 02, 2021 through January 14, 2022). A thoracic CT obtained on February 03, 2022 following 3 cycles of chemotherapy identified residual soft tissue mass in the left lower lobe of the lung measuring 3.7 cm x 2.5 cm, improved left hilar lymphadenopathy, and no progressive mediastinal adenopathy. The fourth cycle was administered on February 16, 2022. A PET scan (independently reviewed in [facility]) requested on February 14, 2022 confirmed a 2.3 cm x 2.9 cm left lower lobe mass (SUV 19), 1.9 cm medial left lower lobe pleural lesion (SUV 15.1) that represented a discontinuous remnant of the original mass, a right lower lobe nodule measuring 9 mm (SUV 3.6), and mild activity within the left hilum, The previous mediastinal, left cervical, portal, and right periaortic lymph nodes are now subcentimeter and FDG negative. An MRI of the brain completed on2021 did not characterize intracranial lesions. The patient was evaluated for consolidative thoracic radiotherapy. I discussed with Mr. Lao The National Comprehensive Cancer Network Guidelines recommending MRI brain surveillance and consideration for thoracic radiotherapy. I reviewed the CREST trial that randomized patients with extensive stage small cell lung cancer to observation or consolidative radiotherapy demonstrated improved six-month progression free survival and an improved 2-year overall survival following a secondary analysis. I also discussed the trial by Xi et al that evaluated consolidative accelerated hypofractionated radiotherapy in combination with chemotherapy (carboplatin and etoposide) sequential to 2 cycles of cisplatin and etoposide compared to an additional 4 cycles of cisplatin/etoposide. Median and 5-year survival rates were significantly better with the addition of radiotherapy. I would endorse a two-week course of thoracic radiotherapy. Preceding radiotherapy, a computed tomographic radiotherapy planning scan with contrast in the treatment position will be acquired and co-registered to the patient's re-staging PET scan to identify the gross tumor volumes. The potential toxicities of thoracic radiotherapy were reviewed. The patient has verbalized understanding would like to proceed as recommended. The patient???s treatment plan was discussed with Citlaly Seth M.D. Signed by: Dr. Nghia Gonzalez 03/18/2022 10:47:22 AM
--- NOTE | 2022-03-24 | CT_ITS ---
Radiation Therapy Planning CT images; total exam DLP: 398.16 mGy-cm MTDD
--- NOTE | 2022-03-30 08:54 | ONCRAD TMN_ITS ---
Radiation Oncology Treatment Management Note Patient Name: Chano Lao Date of : 1955 Date of Service: 03/30/2022 Attending Physician: Nghia Gonzalez M.D. Chano Lao is a 66 year old white male diagnosed with an extensive stage ([id number]) small cell lung cancer of consolidative thoracic radiotherapy in the management of small-cell lung cancer. The patient was evaluated for a suspected pneumonia in October. A thoracic CT scan demonstrated a 7.3 cm mass in the left lower lobe of the lung and extensive mediastinal adenopathy. A bronchoscopy with endobronchial ultrasound-guided biopsy was performed by Marian Ríos M.D. November 18, 2021. A biopsy obtained from the left hilar mass diagnosed small cell carcinoma (PD-L1 TPS < 1%). A PET scan ordered on November 22, 2021 described a 9 cm x 6 cm left lower lobe mass (SUV 20.5) invading the chest wall, 7.1 cm x 6.6 cm left hilar mass (SUV 19.4), a 1 cm right lower lobe nodule (SUV 4), hypermetabolic lymphadenopathy within the prevascular, subaortic, subcarinal, left cervical (level IV), portal, and right periaortic regions. He was prescribed carboplatin, etoposide, and Tecentriq under the supervision of Citlaly Seth M.D. (December 02, 2021 through January 14, 2022). A thoracic CT obtained on February 03, 2022 following 3 cycles of chemotherapy identified residual soft tissue mass in the left lower lobe of the lung measuring 3.7 cm x 2.5 cm, improved left hilar lymphadenopathy, and no progressive mediastinal adenopathy. The fourth cycle was administered on February 16, 2022. A PET scan requested on February 14, 2022 confirmed a 2.3 cm x 2.9 cm left lower lobe mass (SUV 19), 1.9 cm medial left lower lobe pleural lesion (SUV 15.1) that represented a discontinuous remnant of the original mass, a right lower lobe nodule measuring 9 mm (SUV 3.6), and mild activity within the left hilum, The previous mediastinal, left cervical, portal, and right periaortic lymph nodes are now subcentimeter and FDG negative. The patient has received 3 Gy of a prescribed 30 Gy with a 3D conformal radiotherapy plan utilizing a multi-field treatment technique. Upon review of systems, he denied new pulmonary symptoms. On physical examination, the patient weighed 142 lbs. His temperature was 98.2 ???F and the blood pressure was 130/79 mmHg. The pulse was 71 bpm and his respiratory rate was 18. The oxygen saturation while breathing ambient air was 97%. There was no erythema within the treatment clayton. Auscultation of the posterior lung clayton identified bronchial breath sounds. Continue palliative thoracic radiotherapy as prescribed. Signed by: Dr. Nghia Gonzalez 03/30/2022 8:53:41 AM
== END 2022-04-03 23:59 | disposition home or self-care (01) ==
PROVIDERS: Internal Medicine Hematology & Oncology; PCP Family Medicine; Visit Provider Radiology Radiation Oncology
DX: Z51.0 Encounter for antineoplastic radiation therapy (principal); C34.90 Malignant neoplasm of unspecified part of unspecified bronchus or lung; C34.32 Malignant neoplasm of lower lobe, left bronchus or lung; Z87.891 Personal history of nicotine dependence
CPT/HCPCS: 36430; 36591; 77290; 77295; 77300; 77334; 77387; 77412; 80053; 83735; 84132; 84443; 85007; 85025; 86850; 86900; 86920; 96365; 96375; 99205; 99214; J1940; J3475; P9016

== ENCOUNTER 2022-04-14 08:30 | Oncology outpatient (recurring) (ONCR) | payer MEDICARE, MEDICAID, SELFPAY ==
--- NOTE | 2022-04-06 08:54 | ONCRAD TMN_ITS ---
Radiation Oncology Treatment Management Note Patient Name: Chano Lao Date of : 1955 Date of Service: 04/06/2022 Attending Physician: Nghia Gonzalez M.D. Chano Lao is a 66 year old white male diagnosed with an extensive stage ([id number]) small cell lung cancer of consolidative thoracic radiotherapy in the management of small-cell lung cancer. The patient was evaluated for a suspected pneumonia in October. A thoracic CT scan demonstrated a 7.3 cm mass in the left lower lobe of the lung and extensive mediastinal adenopathy. A bronchoscopy with endobronchial ultrasound-guided biopsy was performed by Marian Ríos M.D. November 18, 2021. A biopsy obtained from the left hilar mass diagnosed small cell carcinoma (PD-L1 TPS < 1%). A PET scan ordered on November 22, 2021 described a 9 cm x 6 cm left lower lobe mass (SUV 20.5) invading the chest wall, 7.1 cm x 6.6 cm left hilar mass (SUV 19.4), a 1 cm right lower lobe nodule (SUV 4), hypermetabolic lymphadenopathy within the prevascular, subaortic, subcarinal, left cervical (level IV), portal, and right periaortic regions. He was prescribed carboplatin, etoposide, and Tecentriq under the supervision of Citlaly Seth M.D. (December 02, 2021 through January 14, 2022). A thoracic CT obtained on February 03, 2022 following 3 cycles of chemotherapy identified residual soft tissue mass in the left lower lobe of the lung measuring 3.7 cm x 2.5 cm, improved left hilar lymphadenopathy, and no progressive mediastinal adenopathy. The fourth cycle was administered on February 16, 2022. A PET scan requested on February 14, 2022 confirmed a 2.3 cm x 2.9 cm left lower lobe mass (SUV 19), 1.9 cm medial left lower lobe pleural lesion (SUV 15.1) that represented a discontinuous remnant of the original mass, a right lower lobe nodule measuring 9 mm (SUV 3.6), and mild activity within the left hilum, The previous mediastinal, left cervical, portal, and right periaortic lymph nodes are now subcentimeter and FDG negative. The patient has received 18 Gy of a prescribed 30 Gy with a 3D conformal radiotherapy plan utilizing a multi-field treatment technique. Upon review of systems, he did not report new pulmonary symptoms. On physical examination, the patient weighed 140 lbs. His temperature was 98.2 ???F and the blood pressure was 123/81 mmHg. The pulse was 96 bpm and his respiratory rate was 18. The oxygen saturation while breathing ambient air was 96%. There was no erythema within the treatment clayton. Auscultation of the posterior lung clayton revealed decreased breath sounds. Continue palliative thoracic radiotherapy as planned. Signed by: Dr. Nghia Gonzalez 04/06/2022 8:53:00 AM
[2022-04-06 09:22] LABS: Basophils # 0.1 10^3/uL (0.0-0.1); Basophils % 0.9 %; Eosinophils # 0.1 10^3/uL (0.0-0.8); Eosinophils % 1.9 %; Hematocrit 28.6 % (42.0-52.0); Hemoglobin 9.3 g/dL (11.7-16.6); Lymphocytes # 0.5 10^3/uL (0.8-4.8); Lymphocytes % 9.6 %; Mean Corpuscular HGB Conc 32.5 g/dL (30.0-36.0); Mean Corpuscular Hemoglobin 34.8 pg (28.0-34.0); Mean Corpuscular Volume 107.1 fl (80-94); Mean Platelet Volume 9.7 fL (7.4-10.4); Monocytes # 0.5 10^3/uL (0.2-0.9); Neutrophils # 4.15 10^3/uL (1.8-7.7); Nucleated Red Blood Cells % 0 %; Platelet Count 141 10^3/cmm (130-400); Red Blood Count 2.67 10^6/uL (4.1-5.3); Red Cell Distribution Width 17.3 % (12.1-15.1); White Blood Count 5.4 10^3/uL (4.0-10.0)
[2022-04-06 10:04] LABS: Alanine Aminotransferase 18 U/L (0-41); Albumin Level 3.6 g/dL (3.5-5.2); Alkaline Phosphatase 100 U/L (40-130); Anion Gap 11.5 (5-19); Aspartate Amino Transferase 22 U/L (0-40); Blood Urea Nitrogen 19 mg/dL (8-23); Calcium 9.3 mg/dL (8.5-10.5); Carbon Dioxide 28 mmol/L (22-29); Chloride 99 mmol/L (98-107); Globulin 3.7 g/dL (1.3-4.6); Glomerular Filtration Rate 165.9 mL/min (90-130); Glucose 128 mg/dL (65-115); Osmolality Calculated 284 mOsm/kg (285-295); Potassium 3.5 mmol/L (3.5-5.1); Sodium 135 mmol/L (136-145); Total Bilirubin 0.3 mg/dL (0.15-1.2); Total Protein 7.3 g/dL (6.6-8.7)
[2022-04-06 10:32] LABS: Slide Review Slide Review Perform
--- NOTE | 2022-04-10 08:24 | N.ONRD TS_ITS ---
Radiation OncologyTreatment Summary Patient Name: Chano Lao Date of : 1955 Date of Service: 04/10/2022 Attending Physician: Nghia Gonzalez M.D. Chano Lao has completed consolidative thoracic radiation therapy for the management an extensive stage ([id number]) small cell lung cancer. The patient was evaluated for a suspected pneumonia in October. A thoracic CT scan demonstrated a 7.3 cm mass in the left lower lobe of the lung and extensive mediastinal adenopathy. A bronchoscopy with endobronchial ultrasound-guided biopsy was performed by Marian Ríos M.D. November 18, 2021. A biopsy obtained from the left hilar mass diagnosed small cell carcinoma (PD-L1 TPS < 1%). A PET scan ordered on November 22, 2021 described a 9 cm x 6 cm left lower lobe mass (SUV 20.5) invading the chest wall, 7.1 cm x 6.6 cm left hilar mass (SUV 19.4), a 1 cm right lower lobe nodule (SUV 4), hypermetabolic lymphadenopathy within the prevascular, subaortic, subcarinal, left cervical (level IV), portal, and right periaortic regions. He was prescribed carboplatin, etoposide, and Tecentriq under the supervision of Citlaly Seth M.D. (December 02, 2021 through January 14, 2022). A thoracic CT obtained on February 03, 2022 following 3 cycles of chemotherapy identified residual soft tissue mass in the left lower lobe of the lung measuring 3.7 cm x 2.5 cm, improved left hilar lymphadenopathy, and no progressive mediastinal adenopathy. The fourth cycle was administered on February 16, 2022. A PET scan requested on February 14, 2022 confirmed a 2.3 cm x 2.9 cm left lower lobe mass (SUV 19), 1.9 cm medial left lower lobe pleural lesion (SUV 15.1) that represented a discontinuous remnant of the original mass, a right lower lobe nodule measuring 9 mm (SUV 3.6), and mild activity within the left hilum, The previous mediastinal, left cervical, portal, and right periaortic lymph nodes are now subcentimeter and FDG negative. Daily radiotherapy was administered between the dates March 30, 2022 through April 10, 2022. A prescribed dose of 30 Gy was delivered in 10 fractions encompassing 12 elapsed days. The post-chemotherapy residual tumor volumes and the initial pre-chemotherapy thoracic lymphadenopathy were treated utilizing a 3-dimensional conformal radiotherapy plan with a five-field design utilizing a [id number]-[id number] technique in a partial arc arrangement. The gantry angles used were 20???, 60???, 140???, 180???, and 340??? with a collimator rotation of 0???. . The field sizes spanned 13.1cm x 17 cm to 18.7 cm x 17.1 cm. The SSDs measured a minimum of 87.5 cm to a maximum of 90.1 cm. The ports delivered 40 MU, 69 MU, 63 MU, 57 MU, and 80 MU. Complementary clayton were incorporated with MLC that corresponded to the gantry angles of 20???, 140???, and 180??? apportioning 8 MU, 11 MU, and 11 MU All treatments were performed with the [employer] linear accelerator and an isocentric technique. The dose was calculated by Anisotropic Analytic Algorithm. A photon energy of 15 MV was prescribed with the plan normalized to deliver 100% of the prescription dose to 95% of the planning target volume. Signed by: Dr. Nghia Gonzalez 04/10/2022 8:23:48 AM
[2022-04-14 08:49] LABS: Hematocrit 27.6 % (42.0-52.0); Hemoglobin 9.2 g/dL (11.7-16.6); Mean Corpuscular HGB Conc 33.3 g/dL (30.0-36.0); Mean Corpuscular Hemoglobin 35.2 pg (28.0-34.0); Mean Corpuscular Volume 105.7 fl (80-94); Mean Platelet Volume 10.5 fL (7.4-10.4); Platelet Count 107 10^3/cmm (130-400); Red Blood Count 2.61 10^6/uL (4.1-5.3); Red Cell Distribution Width 16.9 % (12.1-15.1)
[2022-04-14 09:09] LABS: Alkaline Phosphatase 105 U/L (40-130); Chloride 101 mmol/L (98-107); Potassium 3.5 mmol/L (3.5-5.1); Sodium 139 mmol/L (136-145)
[2022-04-14 09:52] LABS: Absolute Segmented Neutrophil 1.7 10/cmm (1.6-7.1); Alanine Aminotransferase 21 U/L (0-41); Anion Gap 12.5 (5-19); Aspartate Amino Transferase 19 U/L (0-40); Band Neutrophils Absolute 0.3 10^3/cmm (0.0-1.2); Blood Urea Nitrogen 21 mg/dL (8-23); Calcium 9.3 mg/dL (8.5-10.5); Carbon Dioxide 29 mmol/L (22-29); Eosinophils 0 %; Glomerular Filtration Rate 134.4 mL/min (90-130); Glucose 134 mg/dL (65-115); Lymphocytes 33 %; Magnesium 1.7 mg/dL (1.7-2.3); Monocytes Absolute 0.5 10^3/cmm (0.1-0.6); Osmolality Calculated 293 mOsm/kg (285-295); Segmented Neutrophils 43 %; Thyroid Stimulating Hormone 0.12 uIU/mL (0.27-4.20); Total Bilirubin 0.3 mg/dL (0.15-1.2); Total Cells Counted 100 (0-100); Total Protein 7.4 g/dL (6.6-8.7)
[2022-04-14 09:53] LABS: Lymphocytes Absolute 1.5 10^3/cmm (1.2-3.4); Macrocytosis 1+; Platelet Estimate Decreased (Normal)
[2022-04-14 10:03] LABS: Albumin Level 3.4 g/dL (3.5-5.2)
[2022-04-14] MEDS: sodium chloride 0.9% 250 ML 100 ML IV (11:05)
[2022-04-14] MEDS: atezolizumab 1,200 MG in sodium chloride 0.9% 250 ML 250 MG IV (11:16)
== END 2022-05-04 23:59 | disposition home or self-care (01) ==
PROVIDERS: Internal Medicine Hematology & Oncology; PCP Family Medicine; Visit Provider Radiology Radiation Oncology
DX: Z51.12 Encounter for antineoplastic immunotherapy; C34.32 Malignant neoplasm of lower lobe, left bronchus or lung; C77.8 Secondary and unspecified malignant neoplasm of lymph nodes of multiple regions; F17.210 Nicotine dependence, cigarettes, uncomplicated; D64.9 Anemia, unspecified; R13.12 Dysphagia, oropharyngeal phase; B37.81 Candidal esophagitis; Z79.899 Other long term (current) drug therapy
CPT/HCPCS: 36415; 36591; 77336; 77387; 77412; 80053; 83735; 84443; 85007; 85025; 96413; 99213; 99214; J7050; J9022

== ENCOUNTER 2022-05-26 09:00 | Oncology outpatient (recurring) (ONCR) | payer MEDICARE, MEDICAID, SELFPAY ==
[2022-05-05 08:36] LABS: Basophils % 0.7 %; Eosinophils # 0.2 10^3/uL (0.0-0.8); Eosinophils % 2.7 %; Hematocrit 28.5 % (42.0-52.0); Hemoglobin 9.5 g/dL (11.7-16.6); Lymphocytes # 1.1 10^3/uL (0.8-4.8); Lymphocytes % 20.4 %; Mean Corpuscular HGB Conc 33.3 g/dL (30.0-36.0); Mean Corpuscular Hemoglobin 35.6 pg (28.0-34.0); Mean Corpuscular Volume 106.7 fl (80-94); Mean Platelet Volume 10.5 fL (7.4-10.4); Monocytes # 0.6 10^3/uL (0.2-0.9); Monocytes % 11.7 %; Neutrophils # 3.52 10^3/uL (1.8-7.7); Neutrophils % 64.1 %; Nucleated Red Blood Cells % 0 %; Platelet Count 92 10^3/cmm (130-400); Red Blood Count 2.67 10^6/uL (4.1-5.3); Red Cell Distribution Width 14.7 % (12.1-15.1); White Blood Count 5.5 10^3/uL (4.0-10.0)
[2022-05-05 08:39] LABS: Slide Review Slide Review Perform
[2022-05-05 09:03] LABS: Alanine Aminotransferase 11 U/L (0-41); Albumin Level 3.4 g/dL (3.5-5.2); Alkaline Phosphatase 82 U/L (40-130); Anion Gap 12.3 (5-19); Aspartate Amino Transferase 14 U/L (0-40); Blood Urea Nitrogen 14 mg/dL (8-23); Calcium 9.2 mg/dL (8.5-10.5); Carbon Dioxide 28 mmol/L (22-29); Chloride 101 mmol/L (98-107); Globulin 3.8 g/dL (1.3-4.6); Glomerular Filtration Rate 134.4 mL/min (90-130); Glucose 140 mg/dL (65-115); Osmolality Calculated 289 mOsm/kg (285-295); Potassium 3.3 mmol/L (3.5-5.1); Sodium 138 mmol/L (136-145); Thyroid Stimulating Hormone 0.09 uIU/mL (0.27-4.20); Total Bilirubin 0.3 mg/dL (0.15-1.2); Total Protein 7.2 g/dL (6.6-8.7)
[2022-05-05] MEDS: atezolizumab 1,200 MG in sodium chloride 0.9% 250 ML 300 MG IV (11:26)
[2022-05-05] MEDS: sodium chloride 0.9% 250 ML 75 ML IV (11:29)
[2022-05-05 12:30] VITALS: BP 80/54; PULSE 77; RESP 16; TEMP 36.6; O2SAT 91
[2022-05-26 08:57] LABS: Basophils % 0.6 %; Eosinophils # 0.1 10^3/uL (0.0-0.8); Eosinophils % 1.9 %; Hematocrit 31.1 % (42.0-52.0); Hemoglobin 10.3 g/dL (11.7-16.6); Lymphocytes # 1.2 10^3/uL (0.8-4.8); Lymphocytes % 17.5 %; Mean Corpuscular HGB Conc 33.1 g/dL (30.0-36.0); Mean Corpuscular Hemoglobin 35.9 pg (28.0-34.0); Mean Corpuscular Volume 108.4 fl (80-94); Mean Platelet Volume 9.7 fL (7.4-10.4); Monocytes # 0.8 10^3/uL (0.2-0.9); Monocytes % 11.1 %; Neutrophils # 4.64 10^3/uL (1.8-7.7); Neutrophils % 68.8 %; Nucleated Red Blood Cells % 0 %; Platelet Count 121 10^3/cmm (130-400); Red Blood Count 2.87 10^6/uL (4.1-5.3); Red Cell Distribution Width 13.5 % (12.1-15.1); White Blood Count 6.8 10^3/uL (4.0-10.0)
[2022-05-26 09:26] LABS: Alanine Aminotransferase 18 U/L (0-41); Albumin Level 3.5 g/dL (3.5-5.2); Alkaline Phosphatase 96 U/L (40-130); Anion Gap 10.7 (5-19); Aspartate Amino Transferase 16 U/L (0-40); Blood Urea Nitrogen 13 mg/dL (8-23); Calcium 9.4 mg/dL (8.5-10.5); Carbon Dioxide 30 mmol/L (22-29); Chloride 101 mmol/L (98-107); Globulin 3.7 g/dL (1.3-4.6); Glomerular Filtration Rate 134.4 mL/min (90-130); Glucose 127 mg/dL (65-115); Magnesium 1.7 mg/dL (1.7-2.3); Osmolality Calculated 288 mOsm/kg (285-295); Potassium 3.7 mmol/L (3.5-5.1); Sodium 138 mmol/L (136-145); Thyroid Stimulating Hormone 0.26 uIU/mL (0.27-4.20); Total Bilirubin 0.3 mg/dL (0.15-1.2); Total Protein 7.2 g/dL (6.6-8.7)
[2022-05-26] MEDS: sodium chloride 0.9% 250 ML 100 ML IV (10:19)
[2022-05-26] MEDS: atezolizumab 1,200 MG in sodium chloride 0.9% 250 ML 600 MG IV (10:38)
[2022-05-26 11:00] VITALS: BMI 21.2
[2022-05-26 11:14] VITALS: BP 121/73; PULSE 84; RESP 18; TEMP 37; O2SAT 98
--- NOTE | 2022-05-26 11:28 | PC.NURSE ---
1125 on 05/26/22 Call to General Surgery spoke with Nakia, Nurse of Dr. Brandt with General Surgery. Informed Nakia of patient's port-a-cath appearance with open areas and visible port sections. Per Nakia, patient to come in at 1pm today to have his port-a-cath assessed by Dr. Brandt as per Dr. Seth's request. Patient given appointment information and verbalized understanding. Patient leaves via wheelchair, assisted by friend. - Karl Sood
== END 2022-06-03 23:59 | disposition home or self-care (01) ==
PROVIDERS: Internal Medicine Hematology & Oncology; PCP Family Medicine; Visit Provider Radiology Radiation Oncology
DX: Z51.12 Encounter for antineoplastic immunotherapy (principal); C34.32 Malignant neoplasm of lower lobe, left bronchus or lung; C77.8 Secondary and unspecified malignant neoplasm of lymph nodes of multiple regions; C78.01 Secondary malignant neoplasm of right lung; F17.210 Nicotine dependence, cigarettes, uncomplicated; E03.2 Hypothyroidism due to medicaments and other exogenous substances; T45.1X5A Adverse effect of antineoplastic and immunosuppressive drugs, initial encounter; Z79.899 Other long term (current) drug therapy; Z95.828 Presence of other vascular implants and grafts
CPT/HCPCS: 80053; 83735; 84443; 85025; 96413; 99213; 99214; J7050; J9022

== ENCOUNTER 2022-06-16 08:26 | Oncology outpatient (recurring) (ONCR) | payer MEDICARE, MEDICAID, SELFPAY ==
[2022-06-16 09:25] LABS: Basophils % 0.6 %; Eosinophils # 0.2 10^3/uL (0.0-0.8); Eosinophils % 2.1 %; Hematocrit 29.5 % (42.0-52.0); Hemoglobin 9.9 g/dL (11.7-16.6); Lymphocytes % 14.5 %; Mean Corpuscular HGB Conc 33.6 g/dL (30.0-36.0); Mean Corpuscular Hemoglobin 35.6 pg (28.0-34.0); Mean Corpuscular Volume 106.1 fl (80-94); Mean Platelet Volume 10.1 fL (7.4-10.4); Monocytes # 0.7 10^3/uL (0.2-0.9); Monocytes % 10.3 %; Neutrophils % 72.2 %; Nucleated Red Blood Cells % 0 %; Platelet Count 121 10^3/cmm (130-400); Red Blood Count 2.78 10^6/uL (4.1-5.3); Red Cell Distribution Width 13.2 % (12.1-15.1); White Blood Count 7.2 10^3/uL (4.0-10.0)
[2022-06-16 09:39] LABS: Alanine Aminotransferase 14 U/L (0-41); Albumin Level 3.8 g/dL (3.5-5.2); Alkaline Phosphatase 82 U/L (40-130); Anion Gap 7.7 (5-19); Aspartate Amino Transferase 20 U/L (0-40); Blood Urea Nitrogen 14 mg/dL (8-23); Calcium 9.3 mg/dL (8.5-10.5); Carbon Dioxide 33 mmol/L (22-29); Chloride 102 mmol/L (98-107); Globulin 2.8 g/dL (1.3-4.6); Glomerular Filtration Rate 134.4 mL/min (90-130); Glucose 122 mg/dL (65-115); Magnesium 1.9 mg/dL (1.7-2.3); Osmolality Calculated 290 mOsm/kg (285-295); Potassium 3.7 mmol/L (3.5-5.1); Sodium 139 mmol/L (136-145); Thyroid Stimulating Hormone 1.02 uIU/mL (0.27-4.20); Total Bilirubin 0.2 mg/dL (0.15-1.2); Total Protein 6.6 g/dL (6.6-8.7)
[2022-06-16] MEDS: atezolizumab 1,200 MG in sodium chloride 0.9% 250 ML 500 MG IV (12:24)
[2022-06-16 12:55] VITALS: BP 120/78; PULSE 78; RESP 18; TEMP 36.6; O2SAT 98
== END 2022-07-04 23:59 | disposition home or self-care (01) ==
PROVIDERS: Internal Medicine Hematology & Oncology; PCP Family Medicine; Visit Provider Radiology Radiation Oncology
DX: Z51.12 Encounter for antineoplastic immunotherapy (principal); C34.32 Malignant neoplasm of lower lobe, left bronchus or lung; C77.8 Secondary and unspecified malignant neoplasm of lymph nodes of multiple regions; C78.01 Secondary malignant neoplasm of right lung; F17.210 Nicotine dependence, cigarettes, uncomplicated; D64.9 Anemia, unspecified; R14.3 Flatulence; Z79.899 Other long term (current) drug therapy; Z92.3 Personal history of irradiation; Z95.828 Presence of other vascular implants and grafts
CPT/HCPCS: 80053; 83735; 84443; 85025; 96413; 99213; 99214; J7050; J9022

== ENCOUNTER 2022-06-17 12:00 | Day surgery (SDC) | payer MEDICARE, MEDICAID, SELFPAY ==
[2022-06-16 14:45] VITALS: BMI 21.1
[2022-06-17] VITALS (14 sets, daily range): BP systolic 83–149; BP diastolic 54–89; PULSE 71–88; RESP 16–25; TEMP 36.6–36.9; O2SAT 95–100
--- NOTE | 2022-06-17 12:15 | SC_ITS ---
WS: [id number] INTRAOPERATIVE TECHNIQUE: 3 Spot fluoroscopic images for intraoperative purposes. FLUOROSCOPY TIME: 3.2 seconds CLINICAL INFORMATION: Mediport Placement COMPARISON: None. FINDINGS: LEFT Port-A-Cath with tip in the mid to distal SVC. SC/C-arm FL for CVA [id number] IMPRESSION: Images obtained for intraoperative purposes.
--- NOTE | 2022-06-17 12:15 | XRR_ITS ---
PROCEDURE INFORMATION: Exam: XR Chest Exam date and time: 06/17/2022 4:48 PM Age: 66 years old Clinical indication: Device placement; Other: Medport; Additional info: Post op mediport placement TECHNIQUE: Imaging protocol: Radiologic exam of the chest. Views: 1 view. COMPARISON: CT chest w con* [id number] 02/03/2022 11:40 AM FINDINGS: Tubes, catheters and devices: Left-sided Port-A-Cath with tip approaching the atrial caval junction. Lungs: Emphysematous changes. Left lower lobe retrocardiac subsegmental airspace opacities suspected. Pleural spaces: Unremarkable. No pleural effusion. No pneumothorax. Heart/Mediastinum: Unremarkable. No cardiomegaly. Bones/joints: Unremarkable. XR/XR chest 1V portable [id number] IMPRESSION: 1. Left-sided Port-A-Cath with tip approaching the atrial caval junction. 2. Emphysematous changes. 3. Left lower lobe retrocardiac subsegmental airspace opacities suspected.
--- NOTE | 2022-06-17 12:51 | SUR.PREOP ---
1251 skin tear redressed to right elbow,tegederm applied
[2022-06-17] MEDS: sodium chloride 0.9% 1,000 ML 30 ML IV (12:55)
--- NOTE | 2022-06-17 12:56 | W.PM.OPSUD ---
Surgery/Procedure H&P Update DATE OF PROCEDURE: June 17, 2022 DATE H&P PERFORMED: 06/16/22 PREOP DIAGNOSIS: Mediport malfunction PLANNED PROCEDURE: Operation Date: 06/17/22 13:35 Proposed Procedures p Port Remvoal and Port placement [id number],[id number](Not Applicable) - Luis Fernando Brandt DO s Portacath Placement(Not Applicable) - Luis Fernando Brandt DO
--- NOTE | 2022-06-17 12:59 | ANES.PREANE2 ---
Pre-Anesthetic Assessment Height/Weight: Height 1.7 m Weight 61.235 kg Temp Pulse Resp BP Pulse Ox O2 Del Method 98.4 F 76 16 116/77 97 06/17/22 12:45 06/17/22 12:45 06/17/22 12:45 06/17/22 12:45 06/17/22 12:45 06/17/22 12:45 Preop Diagnosis: Mediport malfunction Operation Date: 06/17/22 13:35 Proposed Procedures p Port Remvoal and Port placement [id number],[id number](Not Applicable) - Luis Fernando Brandt DO s Portacath Placement(Not Applicable) - Luis Fernando Brandt DO Familial anesthetic complications: None Was Beta Taz taken within 24 hours: Yes Was Clonidine taken within 24 hours: N/A Last intake: Intake Last Liquid Date 06/17/22 Last Liquid Time 05:00 Last Solid Date 06/16/22 Last Solid Time 18:00 Social Tobacco and No alcohol Exam alert, oriented x 3, clear to auscultation bilaterally and regular rate & rhythm Airway Mallampati: Class II Dentition: false Pulmonary Chronic Obstructive Pulmonary Disease lung cancer CV/HEM Coronary Artery Disease (stent), Hypertension and Myocardial Infarction Metabolic Hyperlipidemia and Thyroid Disease Anesthetic Plan ASA status: 4 Anesthesia: MAC Risk of > 500 ml blood loss (7ml/kg in children): No Medications/Allergies Home Medications Medication Instructions Recorded Confirmed Last Taken Type albuterol sulfate 90 mcg/actuation 2 puff inhalation Q6H PRN 07/31/19 06/17/22 06/16/22 History aerosol inhaler (ProAir HFA) Shortness Of Breath carvedilol 3.125 mg tablet 3.125 mg PO BID 07/31/19 06/17/22 06/17/22 History pravastatin 40 mg tablet 40 mg PO QDAY 07/31/19 06/17/22 06/16/22 History budesonide-formoterol HFA 160 1 inh inhalation BID 11/12/21 06/17/22 06/16/22 History mcg-4.5 mcg/actuation aerosol inhaler (Symbicort) allopurinol 100 mg tablet 100 mg PO DAILY 14 days #14 tabs 11/27/21 06/17/22 06/16/22 Rx amino ac-vit [id number] 1 tab PO DAILY 11/27/21 06/17/22 06/16/22 History tablet melatonin 10 mg capsule 10 mg PO DAILY 11/27/21 06/17/22 06/16/22 History guaifenesin 600 mg tablet, 600 mg PO BID PRN Cold Symptoms 02/10/22 06/17/22 06/16/22 History extended release 12 hr (Mucinex) lorazepam 1 mg tablet 0.5 - 1 mg PO Q6H PRN Severe 02/16/22 06/16/22 Unknown Rx Nausea #30 tabs prochlorperazine maleate 10 mg 10 mg PO Q4H PRN Mild Nausea #30 02/16/22 06/16/22 Unknown Rx tablet (Compazine) tabs levothyroxine 75 mcg tablet 75 mcg PO DAILY #30 tabs 06/04/22 06/17/22 06/17/22 Rx hydrocodone 10 mg-acetaminophen 2 tab PO QID PRN Pain 06/16/22 06/17/22 06/17/22 History 325 mg tablet Allergies Allergy/AdvReac Type Severity Reaction Status Date / Time No Known Allergies Allergy Verified 06/16/22 14:41 [facility] Anesthesia Medical History AAA (abdominal aortic aneurysm) Aortic stenosis ASHD (arteriosclerotic heart disease) Carotid stenosis, bilateral COPD (chronic obstructive pulmonary disease) CVA (cerebral vascular accident) DDD (degenerative disc disease) Hyperlipidemia Small cell lung cancer, left lower lobe Surgical History H/O neck surgery Previous back surgery S/P carotid endarterectomy Family History Family/Other No problems noted. Father No problems noted. Mother No problems noted. Other CAD (coronary artery disease) Degenerative disorder of bone Thyroid disease Social History Smoking and tobacco status: current every day smoker cigarettes Packs smoked per day: 0.5 Years cigarettes smoked: 51 [ Other cigarette details: started at age 15] Alcohol intake: never Data Anesthesia Cardiac Studies: No Data to Display
[2022-06-17] MEDS: fentaNYL 50 mcg/mL INJ 2mL 25 MCG IVP (14:30)
[2022-06-17] MEDS: fentaNYL 50 mcg/mL INJ 2mL IVP (15:27)
[2022-06-17] MEDS: ceFAZolin 2,000 MG in sodium chloride 0.9% (plus) 50 ML 100 MG IV (16:00)
[2022-06-17] MEDS: heparin, porcine 1,000 unit/mL INJ 10 mL 10000 UNIT XX (16:15)
--- NOTE | 2022-06-17 16:37 | PM.OP ---
Operative Report Date of procedure: June 17, 2022 Pre-op diagnosis: Preop Diagnosis Mediport malfunction Post-op diagnosis: same Procedure done: Mediport removal and Mediport placement Implants: PowerPort Specimens removed/disposition: PowerPort for gross only Surgeon: Dr. Luis Fernando Brandt, DO Anesthesia: MAC Estimated blood loss (mL): 5 Complications: None apparent Brief History: This is a very pleasant 66-year-old gentleman who has been getting chemotherapy for lung cancer through a right-sided Mediport. The Mediport became exposed underneath the skin and therefore need to be removed. Mediport removal and Mediport placement were indicated. The risks and benefits were explained and documented. Procedure: Patient was taken to the operating room and placed supine on the operating room table. All bony prominences were padded. She was given IV sedation and monitored throughout the case by the anesthesia personnel. SCDs were placed and turned on. The arms were tucked to the side. Patient received Ancef 2 g preoperatively IV. The bilateral chest wall was prepped and draped in usual sterile fashion using chlorhexidine base prep. Sterile drapes were applied. We did procedure pause prior to beginning. 2% lidocaine with epinephrine was used to anesthetize the area over the right sided Mediport. A 15 blade scalpel was used to make a horizontal incision just superior to the port. Mediport was grasped and removed for holding pressure at the subclavian insertion site. 3-0 Vicryl was used to make a [id number] closure over the catheter tract. 3-0 nylon was used to close the incision in an interrupted fashion. An 18 gauge needle was placed in the left subclavian vein. Dark, nonpulsatile blood was aspirated. A guidewire was placed through the needle centrally toward the atrial/vena caval junction. Fluoroscopy visualized good placement. The needle was removed and the guidewire was clipped to the drape with a hemostat. Further local anesthetic was infiltrated in the soft tissues of the left chest wall and a #15 blade was used to make a horizontal skin incision. A subcutaneous Mediport pocket was created using Bovie cautery, dissecting down through the skin and subcutaneous tissues. Meticulous hemostasis was achieved. The Mediport was sutured in position using 3-0 vicryl suture x2 stitches. A #15 blade was used to make a small skin feroz around the guidewire insertion area. The Mediport tubing was tunneled through the subcutaneous tissues up to the needle insertion location. A dilator with a peel-away sheath was placed over the guidewire and placed centrally. After measuring with fluoroscopy, the Mediport tubing was cut to length so that the tip would end at the atrial/vena caval junction. The inner cannula and the guidewire were removed, leaving the dilator sheath in place. The Mediport was flushed. The tip of the catheter was inserted through the peel-away sheath and the peel-away sheath removed in the standard fashion. The Mediport was accessed with a straight Greene needle and dark, nonpulsatile blood was aspirated and flushed using heparinized saline to hep-lock the Mediport. Final fluoroscopy visualization showed no kink in the catheter and the tip of the Mediport tubing near the atrial/vena caval junction. Both skin incisions were thoroughly irrigated and suctioned dry. Meticulous hemostasis noted. The Mediport incision was closed using interrupted 3-0 Vicryl suture for the deep dermal layer and 4-0 Vicryl run to close the skin edge. The left subclavian insertion site incision was closed with a single subcuticular stitch. Skin glue was applied as a topical dressing. This was allowed to dry. Patient was awakened from anesthesia and transferred via her cart to the recovery room in stable condition. All needle, sponge, and instrument counts were correct per the operating personnel x2 counts.
--- NOTE | 2022-06-17 17:32 | PC.NURSE ---
Addendum entered by Elva Gallo RN 06/17/22 17:33: Hemostacsis achieved. Ice applied. Dr. Bess @ bedside to evaluate. Pressure dressing applied per Dr. Brandt request Original Note: Bleeding was noted at right incision site. Pressure was held FOR 10 MINUTES. Hemostasis n
--- NOTE | 2022-06-17 17:41 | ANE.PACU2 ---
Inpatient post-anesthesia follow up: Airway intact: Yes Vital signs: Temperature 98 F Pulse Rate 79 Respiratory Rate 19 Blood Pressure 140/82 Pulse Oximetry 97 Oxygen Delivery Me thod Room Air Oxygen Flow Rate Fraction of Inspir ed Oxygen Hydration adequate: Yes Nausea and vomiting: No Pain level: 1 Mental status: Baseline
[2022-06-17] MEDS: HYDROcodone-acetaminophen 10-325 mg Tablet 2 TAB PO (17:45)
== END 2022-06-17 18:00 | disposition home or self-care (01) ==
PROVIDERS: PCP Family Medicine; Visit Provider Surgery
PROC: (CPT 36589; principal; 2022-06-17 13:25)
PROC: (CPT 36561; 2022-06-17 13:25)
DX: Z45.2 Encounter for adjustment and management of vascular access device (principal); J44.9 Chronic obstructive pulmonary disease, unspecified; C34.90 Malignant neoplasm of unspecified part of unspecified bronchus or lung; I25.10 Atherosclerotic heart disease of native coronary artery without angina pectoris; Z95.5 Presence of coronary angioplasty implant and graft; I10 Essential (primary) hypertension; I25.2 Old myocardial infarction; E78.5 Hyperlipidemia, unspecified; F17.210 Nicotine dependence, cigarettes, uncomplicated
CPT/HCPCS: 36561; 36590; 71045; 77001; 88300; C1788; J0690; J1644; J2370; J2704; J3010; J7030